=== PATIENT | female | born 1985 | race Caucasian/White ===

== ENCOUNTER 2017-02-19 19:55 | Emergency (ER) | payer BC ==
[~2017-02-19] VITALS: Ht 175.3 cm; Wt 50.8 kg
[2017-02-19 20:00] VITALS: BP 117/75
[2017-02-19 20:54] LABS: Basophils # (auto) 0.1 uL; Eosinophils # (auto) 0.2 uL; Lymphocytes # (auto) 2.3 uL; Mean Platelet Volume 7.4 fL (6.9-10.8); Monocytes # (auto) 0.8 uL; Monocytes % (auto) 9.9 % (0.0-12.0)
[2017-02-19 20:56] LABS: Basophils % (auto) 0.9 % (0.0-2.0); Eosinophils % (auto) 2.3 % (0.0-7.0); Hematocrit 35.6 % (36.0-46.0); Hemoglobin 11.3 g/dL (12.2-16.2); Lymphocytes % (auto) 26.6 % (10.0-50.0); Mean Corpuscular Hgb Conc. 31.7 g/dL (32.0-36.0); Mean Corpuscular Volume 75.6 fL (80.0-100.0); Neutrophils # (auto) 5.1 uL; Neutrophils % (auto) 60.3 % (37.0-80.0); Nucleated Red Blood Cells % 0.1 %; Platelet Count (auto) 436 10^3/uL (140-450); White Blood Cell 8.5 10^3/uL (4.4-10.8)
[2017-02-19 21:10] LABS: Albumin 3.4 g/dL (3.4-5.0); BUN/Creatinine Ratio 17.1; Bilirubin, Total 0.2 mg/dL (0.2-1.0); Calcium 8.9 mg/dL (8.5-10.1); Potassium 3.7 mmol/L (3.5-5.1); Total Protein 8.4 g/dL (6.4-8.2)
[2017-02-19 21:10] LABS: Urine Bilirubin Negative (Negative); Urine Blood 1+ /uL (Negative); Urine Ca Oxalate Crystal FEW (None Seen); Urine Color Yellow (Yellow); Urine Glucose Normal (Normal); Urine Ketone TRACE (Negative); Urine Mucus FEW (None Seen); Urine Nitrite Negative (Negative); Urine RBC 12 /hpf (0 - 4); Urine Squamous Epithelial Cell MANY /hpf (<5)
[2017-02-19 21:57] LABS: Hypochromia Moderate; Microcytosis Slight; Platelet Estimate Adequate
[2017-02-19 22:00] LABS: Ovalocytes FEW
[2017-02-19 22:01] LABS: Stomatocytes Few
== END 2017-02-20 00:16 | disposition left against medical advice (07) ==
LOC: ER 20:01
DX: R30.0 Dysuria (principal); R10.9 Unspecified abdominal pain; Z53.21 Procedure and treatment not carried out due to patient leaving prior to being seen by health care provider
CPT/HCPCS: 36415; 74176; 80053; 81001; 81025; 85025

== ENCOUNTER 2017-11-14 01:18 | Emergency (ER) | payer BC ==
[~2017-11-14] VITALS: Ht 175.3 cm; Wt 52.2 kg
[2017-11-14 02:38] VITALS: BP 110/72
[2017-11-14] MEDS ORDERED: LIDOCAINE 1% (LOCAL ANESTH.) PF 5ml SDV ONE (02:50)
[2017-11-14] MEDS ORDERED: HYDROcodone-ACET 10/325MG TAB PO ONE (03:00)
[2017-11-14] MEDS ORDERED: cefTRIAXone SOD 1,000 MG VL IM ONE (03:00)
== END 2017-11-14 03:21 | disposition home or self-care (01) ==
LOC: ER 01:19
DX: S62.336A Displaced fracture of neck of fifth metacarpal bone, right hand, initial encounter for closed fracture (principal)
CPT/HCPCS: 29125; 73130; 96372; 99284; J0696